=== PATIENT | female | born 2005 | race Caucasian/White ===

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

== ENCOUNTER 2024-06-09 23:32 | Emergency (ER) | payer OTHER ==
[~2024-06-09] VITALS: Ht 160 cm; Wt 105.7 kg
[2024-06-10] MEDS ORDERED: PREDNISONE20 M1 PO (01:10)
[2024-06-10] MEDS ORDERED: ZITHROMAX250 MG PO (01:10)
[2024-06-10] MEDS ORDERED: methylPREDNISolone sod succ 125 MG VIAL IM ONE (01:10)
== END 2024-06-10 01:21 | disposition home or self-care (01) ==
LOC: ED 23:32
DX: J45.909 Unspecified asthma, uncomplicated (principal); Z20.822 Contact with and (suspected) exposure to COVID-19; R07.89 Other chest pain; Z88.8 Allergy status to other drugs, medicaments and biological substances